=== PATIENT | female | born 1950 ===

== ENCOUNTER 2024-09-17 07:29 | Outpatient (CLI) | payer OTHER ==
[~2024-09-17 07:29] MED LIST: AMBIEN10 MG; FOLIC ACID1 MG; HYZAAR 100-121 UDTAB; LANOXIN0.25 MG; NAMENDA5 MG; NEURIN SL; PLAVIX75 MG; PRAVASTATIN SOD40 MG
== END 2024-09-17 07:33 | disposition home or self-care (01) ==
LOC: SONOGRAMA 07:29
PROVIDERS: ATTEND Internal Medicine
DX: R22.41 Localized swelling, mass and lump, right lower limb (principal)